=== PATIENT | male | born 2000 | race Caucasian/White ===

== ENCOUNTER 2024-04-30 16:16 | Emergency (ER) | payer OTHER ==
[2024-04-30] MEDS: Take Home: Cephalexin 500 MG Cap, 6 Cap Pack PO ONE (18:00)
[2024-04-30] MEDS: Lidocaine 1% 10 ML MDV INJECT ONE (18:00)
== END 2024-04-30 18:03 | disposition home or self-care (01) ==
LOC: VM.ED 16:16
DX: S60.450A Superficial foreign body of right index finger, initial encounter (principal); Z79.899 Other long term (current) drug therapy; W45.8XXA Other foreign body or object entering through skin, initial encounter
CPT/HCPCS: 99283; A9270; J3490